=== PATIENT | female | born 1985 ===

== ENCOUNTER → 2017-10-21 | Outpatient (CLI) | payer OTHER ==
[~2017-10-21] VITALS: Ht 160 cm; Wt 72.6 kg
[~2017-10-21] MED LIST: LIDOCAINE 1% INJ 50 ML (XYLOCAINE) VIAL IJ ONE; LIDOCAINE 1% INJ 50 ML (XYLOCAINE) VIAL ONE
[2017-10-21 08:20] VITALS: BP 121/69
[2017-10-21 09:00] VITALS: BP 118/69
--- NOTE | 2017-10-21 09:58 | Diagnostic Imaging Report ---
INDICATION: Left thyroid mass. Patient presents for fine-needle aspiration using ultrasound guidance. Patient was brought to the procedure room, placed on table in the supine position. Ultrasound imaging of the left neck was performed to evaluate appropriate entry site. Left neck was then prepped and draped in the usual sterile fashion. Small amount of 1% lidocaine was utilized for local anesthesia. A total of 3 passes were made into the dominant mass in the left lobe of the thyroid using 25-gauge needles. Fine needle aspiration was performed. The needle was withdrawn and hemostasis was obtained. IMPRESSION: Successful fine needle aspiration of the dominant mass left lobe of the thyroid using ultrasound guidance. Dictated by: Dictated on workstation # [id number]
--- NOTE | 2017-10-21 10:09 | Diagnostic Imaging Report ---
INDICATION: Right thyroid mass. Patient presents for ultrasound-guided fine needle aspiration. The patient was brought to the procedure room, placed on the table in the supine position. Ultrasound imaging of the right neck was performed to evaluate appropriate entry site. The larger nodule is actually the more lateral and slightly more anterior nodule in the right lobe. Outside study described the more posterior nodule being larger but this actually is slightly smaller. The larger anterior nodule also appears to contain some microcalcifications and a small central cyst. Right neck was prepped and draped in usual sterile fashion. Small amount of 1% lidocaine was utilized for local anesthesia. A total of 3 passes were made into the lateral more anterior nodule with microcalcifications utilizing 25-gauge needles. Fine-needle aspiration technique was performed. The needle was withdrawn and hemostasis was obtained. Patient tolerated the procedure well and left the department in stable condition. IMPRESSION: Successful ultrasound-guided fine needle aspiration right lobe thyroid nodule, as described. Dictated by: Dictated on workstation # [id number]
== END ==
LOC: RAD 08:06
PROVIDERS: ATTEND Family Medicine
DX: E04.1 Nontoxic single thyroid nodule (principal)
CPT/HCPCS: 76942; 88305